=== PATIENT | female | born 1955 | race Two or more races ===

== ENCOUNTER → 2021-01-27 | Outpatient (CLI) | payer MEDICARE, OTHER | END | disposition home or self-care (01) | LOC: Rad HDHVI 10:30 | PROVIDERS: ATTEND Internal Medicine Cardiovascular Disease | DX: I34.0 Nonrheumatic mitral (valve) insufficiency (principal); I10 Essential (primary) hypertension; R07.89 Other chest pain | CPT/HCPCS: 93306 ==

== ENCOUNTER → 2021-02-07 | Outpatient (CLI) | payer MEDICARE, OTHER ==
[~2021-02-07] VITALS: Ht 162.6 cm; Wt 68.0 kg
[2021-02-07 11:58] LABS: BUN/Creatinine Ratio 27.4; Calcium 8.6 mg/dL (8.5-10.1); Potassium 3.5 mmol/L (3.5-5.1)
== END | disposition home or self-care (01) ==
LOC: Rad HDHVI 09:31
PROVIDERS: ATTEND Internal Medicine Cardiovascular Disease
DX: I10 Essential (primary) hypertension (principal); E78.00 Pure hypercholesterolemia, unspecified; R07.89 Other chest pain; Z82.49 Family history of ischemic heart disease and other diseases of the circulatory system
CPT/HCPCS: 36415; 78452; 80048; 93017; 96374; A9500

== ENCOUNTER → 2022-08-16 | Outpatient (CLI) | payer MEDICARE, OTHER ==
[~2022-08-16] VITALS: Ht 172.7 cm; Wt 67.1 kg
== END | disposition home or self-care (01) ==
LOC: Rad HDHVI 09:35
PROVIDERS: ATTEND Internal Medicine Cardiovascular Disease
DX: Z01.810 Encounter for preprocedural cardiovascular examination (principal); I10 Essential (primary) hypertension; E78.5 Hyperlipidemia, unspecified; Z82.49 Family history of ischemic heart disease and other diseases of the circulatory system
CPT/HCPCS: 78452; 93017; 96374; A9500

== ENCOUNTER → 2023-09-06 | Outpatient (CLI) | payer MEDICARE, OTHER | END | disposition home or self-care (01) | LOC: Rad HDHVI 12:45 | PROVIDERS: ATTEND Internal Medicine Cardiovascular Disease | DX: I10 Essential (primary) hypertension (principal) | CPT/HCPCS: 93306 ==

== ENCOUNTER → 2023-09-11 | Outpatient (CLI) | payer MEDICARE, OTHER ==
[~2023-09-11] VITALS: Ht 162.6 cm; Wt 69.4 kg
== END | disposition home or self-care (01) ==
LOC: Rad HDHVI 09:21
PROVIDERS: ATTEND Internal Medicine Cardiovascular Disease
DX: I10 Essential (primary) hypertension (principal); E78.00 Pure hypercholesterolemia, unspecified; E06.3 Autoimmune thyroiditis; Z82.49 Family history of ischemic heart disease and other diseases of the circulatory system
CPT/HCPCS: 78452; 93017; 96374; A9500

== ENCOUNTER → 2025-02-23 | Outpatient (CLI) | payer MEDICARE, OTHER | END | disposition home or self-care (01) | LOC: Rad HDHVI 13:41 | PROVIDERS: ATTEND Internal Medicine Cardiovascular Disease | DX: I34.0 Nonrheumatic mitral (valve) insufficiency (principal); E78.5 Hyperlipidemia, unspecified; I10 Essential (primary) hypertension | CPT/HCPCS: 93306 ==